=== PATIENT | male | born 1950 | race Caucasian/White ===

== ENCOUNTER 2016-06-19 10:38 | Inpatient (IN) | payer MEDICARE, OTHER ==
[~2016-06-19 10:38] MED LIST: ASPIRIN81 M1 PO; CLARITIN10 M6 PO; CLINDAMYCIN HC300 M2 PO; FLUCONAZOLE100 M2 PO; FOLIC ACID1 M1 PO; GARLIC1 EAC1 PO; GARLIQUE5000 MCG PO; KRILL OIL 1,001 EAC2 PO; KRILL OIL PO; LEVAQUIN750 M1 PO; MULTIVITAMINS1 EAC6 PO; NORCO 5-325 TA1 EACH PO; ONE DAILY1 EAC4 PO; PERFECT BIOTICS PO; TYLENOL PM EX-1 EAC4 PO; TYLENOL325 M2 PO
[2016-06-19] MEDS ORDERED: ATIVAN1 M2 PO (11:19)
[2016-06-19] MEDS ORDERED: XANAX0.5 M1 PO (11:20)
[2016-06-19] MEDS ORDERED: PERCOCET 5-3251 EACH PO (11:20)
[2016-06-19 17:48] LABS: URINE BILIRUBIN NEGATIVE (NEG); URINE BLOOD NEGATIVE (NEG); URINE GLUCOSE (UA) NEGATIVE (NEG); URINE KETONE NEGATIVE (NEG); URINE LEUKOCYTE ESTERASE NEGATIVE (NEG); URINE NITRITE NEGATIVE (NEG); URINE PROTEIN NEGATIVE (NEG)
[2016-06-19 17:49] LABS: URINE APPEARANCE CLEAR; URINE COLOR YELLOW; URINE SPECIFIC GRAVITY 1.024 (1.003-1.030)
[2016-06-20] MEDS ORDERED: MIRALAX17 G2 PO (13:32)
[2016-06-20] MEDS ORDERED: MILK OF MAGNESIA PO (13:32)
== END 2016-06-20 14:10 | DRG 181 ==
LOC: 5WF 10:38
PROVIDERS: Surgery; ADMIT Internal Medicine Medical Oncology
PROC: 05HC33Z Insertion of Infusion Device into Left Basilic Vein, Percutaneous Approach (ICD-10-PCS; principal; 2016-06-19)
DX: C34.12 Malignant neoplasm of upper lobe, left bronchus or lung (principal); C79.51 Secondary malignant neoplasm of bone; C79.31 Secondary malignant neoplasm of brain; C79.70 Secondary malignant neoplasm of unspecified adrenal gland; J32.9 Chronic sinusitis, unspecified; R32 Unspecified urinary incontinence; J44.9 Chronic obstructive pulmonary disease, unspecified; E78.5 Hyperlipidemia, unspecified; F10.21 Alcohol dependence, in remission; Z79.82 Long term (current) use of aspirin; K59.00 Constipation, unspecified; F41.9 Anxiety disorder, unspecified; F32.9 Major depressive disorder, single episode, unspecified; Z86.73 Personal history of transient ischemic attack (TIA), and cerebral infarction without residual deficits; Z87.891 Personal history of nicotine dependence
CPT/HCPCS: A9577; C1751; C9113; J1100; J2060; J2270